=== PATIENT | male | born 1955 | race Caucasian/White ===

== ENCOUNTER 2017-04-30 12:52 | Emergency (ER) | payer MEDICAID ==
[~2017-04-30] VITALS: Ht 177.8 cm; Wt 122.3 kg
[2017-04-30] MEDS ORDERED: GLUCOPHAGE1000 MG PO (13:23)
[2017-04-30] MEDS ORDERED: PRINIVIL10 MG PO (13:23)
[2017-04-30] MEDS ORDERED: LANTUS100 U/ML SQ (13:23)
[2017-04-30 14:21] VITALS: TEMP 98.5
[2017-04-30 14:29] LABS: BASO # 0.1 (0.0-0.2); BASO % 0.4 % (0.0-2.0); EOS # 0.1 (0.0-0.7); EOS % 0.7 % (0-4.0); GRAN # 11.3 (1.4-6.5); GRAN % 81.9 % (42.2-75.2); HEMATOCRIT 41.3 % (42.0-52.0); HEMOGLOBIN 13.7 g/dl (13.5-18.0); LYMPH # 1.1 (1.2-3.4); LYMPH % 8.3 % (20.0-51.0); MEAN CELL VOLUME 89 fl (80.0-100.0); MEAN CORPUSCULAR HEMOGLOBIN 29 pg (27.0-31.0); MEAN CORPUSCULAR HGB CONC 33 g/dl (33.0-37.0); MEAN PLATELET VOLUME 10.1 fl (7.4-10.4); MONO % 7.5 % (1.7-9.3); PLATELET COUNT 210 K/mm3 (130-400); RED BLOOD COUNT 4.66 M/mm3 (4.20-5.60); REDCELL DISTRIBUTION WIDTH-CV 12.3 % (11.5-14.5); WHITE BLOOD COUNT 13.8 K/mm3 (4.8-10.8)
[2017-04-30 14:44] LABS: ADJUSTED CALCIUM 9.1 mg/dL (8.4-10.2); ALANINE AMINOTRANSFERASE 25 U/L (21-72); ALBUMIN 3.5 gm/dL (3.5-5.0); ALKALINE PHOSPHATASE 148 U/L (50-136); ANION GAP 13 mmol/L (7-16); BLOOD UREA NITROGEN 12 mg/dL (9-20); CALCIUM 8.7 mg/dL (8.4-10.2); CARBON DIOXIDE 15 mmol/L (22-30); CHLORIDE 102 mmol/L (98-107); CREATININE, serum 0.84 mg/dL (0.66-1.25); GLUCOSE 273 mg/dL (74-106); LIPASE 61 U/L (23-300); POTASSIUM 3.6 mmol/L (3.4-5.0); SODIUM 130 mmol/L (137-145)
[2017-04-30 14:56] LABS: TROPONIN-I < 0.012 ng/mL (0.000-0.034)
[2017-04-30] MEDS ORDERED: NORCO 325 MG-51 TAB PO (16:56)
[2017-04-30] MEDS ORDERED: LEVAQUIN 750MG750 M1 PO ×2 (16:56→17:53)
[2017-04-30 17:11] VITALS: BP 156/104; PULSE 95
== END 2017-04-30 17:21 | disposition home or self-care (01) ==
LOC: COL.ER 12:52
PROVIDERS: Emergency Medicine
DX: R07.89 Other chest pain (principal); E87.1 Hypo-osmolality and hyponatremia; I10 Essential (primary) hypertension; E11.9 Type 2 diabetes mellitus without complications; Z79.4 Long term (current) use of insulin
CPT/HCPCS: J1170; J1885; J7030; Q9967

== ENCOUNTER → 2017-12-22 | Outpatient (CLI) | payer OTHER ==
[~2017-12-22] MED LIST: GLUCOPHAGE1000 MG PO; LANTUS100 U/ML SQ; LEVAQUIN 750MG750 M1 PO; NORCO 325 MG-51 TAB PO; PRINIVIL10 MG PO
== END ==
LOC: COL.PUL 09:27
DX: Z02.71 Encounter for disability determination (principal); R06.02 Shortness of breath